=== PATIENT | female | born 1960 | race Caucasian/White ===

== ENCOUNTER 2018-07-28 06:18 | Day surgery (SDC) | payer OTHER ==
[~2018-07-28] VITALS: Ht 162.6 cm; Wt 69.3 kg
[2018-07-28] MEDS ORDERED: ONDANSETRON (08:06)
[2018-07-28] MEDS ORDERED: CLONIDINE (08:06)
[2018-07-28] MEDS ORDERED: METOPROLOL (08:06)
[2018-07-28] MEDS ORDERED: PANTOPRAZOLE (08:06)
[2018-07-28] MEDS ORDERED: AZATHIOPRINE (08:06)
[2018-07-28] MEDS ORDERED: AMLODIPINE (08:06)
[2018-07-28 08:12] VITALS: Ht 162.6 cm; Wt 69.3 kg
[2018-07-28 08:18] VITALS: BP 136/74; PULSE 62; RESP 18
--- NOTE | 2018-07-28 08:25 | PREAC ---
Date/Time of Note Date/Time of Note DATE: 07/28/18 TIME: 08:23 Anesthesia Eval and Record Evaluation Time Pre-Procedure Interview DATE: 07/28/18 TIME: 08:23 Age 58 Sex female NPO: 8 hrs Preoperative diagnosis GERD, screening Planned procedure EGD, colonoscopy Past Medical History Past Medical History: Includes Cardio: HTN Renal: CKD, Other (glomerulonephritis) GI: GERD Surgery & Anesthesia Issues No known issue Meds Anticoagulation: No Beta Aisha within 24 hr: No Reason Beta Aisha not given: Pt. not on B-Aisha Reported Medications [Pantoprazole] No Conflict Check 07/28/18 [Ondansetron] No Conflict Check 07/28/18 [Metoprolol] No Conflict Check 07/28/18 [Clonidine] No Conflict Check 07/28/18 [Azathioprine] No Conflict Check 07/28/18 [Amlodipine] No Conflict Check 07/28/18 Meds reviewed: Yes Allergies Coded Allergies: No Known Allergy (Unverified , 07/28/18) Allergies Reviewed: Yes Labs/Studies Labs Reviewed: Reviewed by anesthesiologist test: N/A Pre-procedure Exam Last vitals Vital Signs Date Temp Pulse Resp B/P (MAP) Pulse Ox O2 O2 Flow FiO2 Time Delivery Rate 07/28/18 98.1 62 18 136/74 99 Room Air 08:18 (94) Airway: Adequate mouth opening, Adequate thyromental dist Mallampati: Mallampati II Teeth: Normal Lung: Normal Heart: Normal ASA Physical Status ASA physical status: 3 Emergency: None Planned Anesthetic General/MAC: Mask Planned Pain Management Parenteral pain med Pre-operative Attestations Prior to commencing anesthesia and surgery, the patient was re-evaluated, there was verification of: *The patient's identity *The results of appropriate recent lab work and preoperative vital signs *The above evaluation not changing prior to induction *Anesthetic plan, risk benefits, alternative and complications discussed with patient/family; questions answered; patient/family understands, accepts and wishes to proceed. ANNE MARIE HOFF MD Jul 28, 2018 08:25
[2018-07-28] MEDS ORDERED: hydrALAzine 20 MG INJ IV PRN (08:30)
[2018-07-28] MEDS ORDERED: ONDANSETRON 4 MG INJ IV PRN (08:30)
[2018-07-28] MEDS ORDERED: LABETALOL HCL 20MG INJ IV PRN (08:30)
[2018-07-28] MEDS ORDERED: LIDOCAINE 2% (SDV) 5 ML INJ ONE (08:31)
[2018-07-28] MEDS ORDERED: PROPOFOL 60 ML ONE (08:31)
[2018-07-28 09:20] VITALS: BP 114/65; PULSE 60; RESP 16
--- NOTE | 2018-07-28 09:24 | PAC ---
Date/Time of Note Date/Time of Note DATE: 07/28/18 TIME: 09:22 Post-Anesthesia Notes Post-Anesthesia Note Last documented vital signs Vital Signs Date Temp Pulse Resp B/P (MAP) Pulse Ox O2 O2 Flow FiO2 Time Delivery Rate 07/28/18 98.1 62 18 136/74 99 Room Air 08:18 (94) Activity: WNL Respiratory function: WNL Cardiovascular function: WNL Mental status: Baseline Pain reasonably controlled: Yes Hydration appropriate: Yes Nausea/Vomiting absent: Yes Comments BP: 121/68 HR: 60 RR: 15 T: 97.6 SaO2: 100% ANNE MARIE HOFF MD Jul 28, 2018 09:24
[2018-07-28 09:26] VITALS: BP 122/67; PULSE 58; RESP 19
[2018-07-28 09:31] VITALS: BP 130/72; PULSE 56; RESP 16
[2018-07-28 09:36] VITALS: BP 131/70; PULSE 58; RESP 26
[2018-07-28 09:41] VITALS: BP 136/68; PULSE 58; RESP 24
== END 2018-07-28 10:30 | disposition home or self-care (01) ==
LOC: GIL 06:18
PROVIDERS: ATTEND Internal Medicine Gastroenterology
DX: Z12.11 Encounter for screening for malignant neoplasm of colon (principal); K64.9 Unspecified hemorrhoids; K29.50 Unspecified chronic gastritis without bleeding; B96.81 Helicobacter pylori [H. pylori] as the cause of diseases classified elsewhere; D12.2 Benign neoplasm of ascending colon; D12.4 Benign neoplasm of descending colon; I12.9 Hypertensive chronic kidney disease with stage 1 through stage 4 chronic kidney disease, or unspecified chronic kidney disease; N18.9 Chronic kidney disease, unspecified
CPT/HCPCS: 43239; 45380; 88305; 88312; Z7610